=== PATIENT | female | born 1950 | race Caucasian/White ===

== ENCOUNTER → 2017-01-03 | Outpatient (CLI) | payer OTHER ==
[2015-09-05 14:45] VITALS: BP 108/59
[~2017-01-03] MED LIST: ACYC400T PO; CYAN1TAB19 PO; FURO-69 PO; GABA-586 PO; GABA-587 PO; HYDR12.53 PO; HYDR25TA9 PO; LEVO50TA5 PO; MAGN400T22 PO; OXYC1TAB7 PO; QUET25TA PO; TEMA30CA PO; TRAM50TA PO
[2017-01-03 14:40] LABS: BASO # 0.1 x10^3/uL (0.0-0.2); BASO % 1 % (0-3); EOS % 2 % (0-3); HEMATOCRIT 40.6 % (36.0-47.0); HEMOGLOBIN 13.7 g/dL (12.0-15.5); LYMPH # 2.6 x10^3/uL (1.0-4.8); LYMPH % 30 % (24-48); MEAN CORPUSCULAR HEMOGLOBIN 35 pg (25-35); MEAN CORPUSCULAR HGB CONC 34 g/dL (31-37); MEAN CORPUSCULAR VOLUME 104 fL (79-100); MONO % 7 % (0-9); NEUT % 60 % (31-73); PLATELET COUNT 404 x10^3/uL (140-400); RED BLOOD COUNT 3.92 x10^6/uL (3.50-5.40); RED CELL DISTRIBUTION WIDTH 13.2 % (11.5-14.5); WHITE BLOOD COUNT 8.8 x10^3/uL (4.0-11.0)
[2017-01-03 14:49] LABS: ALBUMIN 3.7 g/dL (3.4-5.0); CREATININE 2.1 mg/dL (0.6-1.0); GFR 23.7; POTASSIUM 3.2 mmol/L (3.5-5.1); TOTAL BILIRUBIN 0.4 mg/dL (0.2-1.0)
== END | disposition home or self-care (01) ==
LOC: SURGPAT 13:09
PROVIDERS: ATTEND Surgery
DX: Z01.812 Encounter for preprocedural laboratory examination (principal)
CPT/HCPCS: 36415; 80048; 82040; 82247; 85027

== ENCOUNTER 2017-01-06 07:52 | Observation (INO) | payer OTHER ==
[2017-01-06] VITALS (10 sets, daily range): BP systolic 92–111; BP diastolic 50–78
[~2017-01-06] VITALS: Ht 157.5 cm; Wt 54.0 kg
[~2017-01-06 07:52] MED LIST changes: +BUPIVAC MPF-EPI 0.5%-1:200000 30 ML VIAL. ONE; +IOHEXOL 300 MG/ML 50 ML VIAL. ONE; +IV RINGERS,LACTATED 1000ML 1,000 ML IV SCH; +LIDOCAINE 1% 1 ML SYRINGE. ID PRN; +MORPHINE SULFATE 2 MG/ML DISP.SYRIN. IV PRN; +ONDANSETRON PF 4 MG/2 ML VIAL. IV PRN; +PROCHLORPERAZINE 10 MG/2 ML VIAL. IV PRN; +fentaNYL PF VIAL 100 MCG/2 ML VIAL IV PRN
[2017-01-06] MEDS ORDERED: fentaNYL PF VIAL 250 MCG/5 ML VIAL ONE (10:29)
[2017-01-06] MEDS ORDERED: ROCURONIUM 50 MG/5 ML VIAL. ONE (10:29)
[2017-01-06] MEDS ORDERED: MIDAZOLAM HCL/PF 2 MG/2 ML VIAL. ONE (10:29)
[2017-01-06] MEDS ORDERED: DEXAMETHASONE SOD PHOS 20 MG/5 ML VIAL. ONE (10:30)
[2017-01-06] MEDS ORDERED: PROPOFOL 20 ML IV ONE (10:30)
[2017-01-06] MEDS ORDERED: LIDOCAINE 2% PF Vial for OR 5 ML VIAL. ONE (10:30)
[2017-01-06] MEDS ORDERED: ONDANSETRON PF 4 MG/2 ML VIAL. ONE (10:30)
[2017-01-06] MEDS ORDERED: PHENYLEPHRINE in 0.9% NACL PF 1 MG/10 ML DISP.SYRIN. IV ONE (11:39)
[2017-01-06] MEDS ORDERED: ePHEDrine PF IN SALINE 50 MG/5 ML DISP.SYRIN IV ONE (11:46)
--- NOTE | 2017-01-06 12:24 | RAD ---
EXAM: Intraoperative cholangiogram. HISTORY: Intraoperative cholangiogram. COMPARISON: None. FINDINGS: 3 fluoroscopic images are obtained intraoperatively during injection of the cystic duct remnant after cholecystectomy. There are no filling defects to suggest retained stones. The common duct is not dilated. Fluoroscopy time 23 seconds. Postsurgical changes are seen in the left upper quadrant. IMPRESSION: No evidence of retained stones.
[2017-01-06] MEDS ORDERED: GLYCOPYRROLATE 1 MG/5 ML VIAL. ONE (12:33)
[2017-01-06] MEDS ORDERED: NEOSTIGMINE METHYLSULFATE 5 MG/5 ML SYRINGE. ONE (12:33)
[2017-01-06] MEDS ORDERED: SEVOFLURANE 61 TO 120 MINUTES. IH ONE (12:39)
[2017-01-06] MEDS ORDERED: DESFLURANE 61 TO 120 MINUTES IH ONE (12:39)
--- NOTE | 2017-01-06 12:48 | PDOC ---
BRIEF OPERATIVE NOTE Date: Jan 06, 2017 Pre-Op Diagnosis sx cholelithiasis Post-Op Diagnosis same with abdominal adhesions Procedure Performed l/s cholecystectomy with MICHAEL vaca Surgeon Marshall Anesthesia Type: General Blood Loss 10 IV Fluid 1300cc Urine Output 320cc Specimens Obtained GB Findings supple GB covered by omental adhesions, omental adhesions to abdominal wall 2/2 previous surgeries Complications none Additional Remarks WK # [id number] ULISES DOBBS MD Jan 06, 2017 12:48
[2017-01-06] MEDS: HYDROmorphone 2 MG/ML VIAL IV PRN ×5 (13:09→22:43)
[2017-01-06] MEDS: fentaNYL PF VIAL 100 MCG/2 ML VIAL IV PRN ×2 (13:09→13:31)
[2017-01-06] MEDS ORDERED: oxyCODONE/APAP 5/325 1 TAB TABLET PO PRN (15:15)
[2017-01-06] MEDS ORDERED: 0.9 % SODIUM CHLORIDE 10 ML DISP.SYRIN. IV PRN (15:15)
[2017-01-06] MEDS ORDERED: diphenhydrAMINE 50 MG/ML VIAL IV PRN (15:15)
[2017-01-06] MEDS ORDERED: diphenhydrAMINE HCL 25 MG CAPSULE PO PRN (15:15)
[2017-01-06] MEDS ORDERED: DEXTROSE 50% 25 GM / 50ML DISP.SYRIN. IV PRN (15:15)
[2017-01-06] MEDS: POTASSIUM CL 20MEQ-0.45% NACL 1,000 ML IV SCH (15:29)
--- NOTE | 2017-01-06 16:11 | OP ---
DATE OF SURGERY: 01/06/2017 PREOPERATIVE DIAGNOSIS: Symptomatic cholelithiasis. POSTOPERATIVE DIAGNOSIS: Symptomatic cholelithiasis with abdominal adhesions. PROCEDURE: Laparoscopic cholecystectomy with cholangiogram and lysis of adhesions. SURGEON: Ulises Dobbs MD ANESTHESIA: General endotracheal. ESTIMATED BLOOD LOSS: 10 mL. INTRAVENOUS FLUIDS: 1300 hours. URINE OUTPUT: 300 mL. INDICATIONS: The patient is a 66-year-old with postprandial right upper quadrant pain and known cholelithiasis. She is brought for cholecystectomy. OPERATIVE FINDINGS: The liver was smooth and sharp. The gallbladder was supple and elongated. There were omental adhesions ____ the gallbladder itself. There were some omental adhesions to the abdominal wall in the lower abdomen from previous procedures as well as in the epigastric area. Visual inspection of the remainder of the abdomen failed to reveal obvious abnormalities. DESCRIPTION OF PROCEDURE: The patient brought to the operating suite, given a general endotracheal anesthetic. Flores catheter placement and drainage and the abdomen prepped and draped in usual sterile fashion. A midclavicular line port site was chosen to try to avoid adhesions from previous midline procedures. A 5-mm Visiport was used to gain access into the abdominal cavity, taking care to avoid injury to abdominal contents. Pneumoperitoneum was established. Camera inserted and inspection carried out with results as noted above. With the table in reverse Trendelenburg rolled to left, the lateral port was placed under direct vision. This port was used to take down omental adhesions in the epigastrium with these Harmonic scalpel, taking care to avoid injury to adjacent bowel. This allowed placement of our epigastric port site and also under direct vision, the camera site. Some omental adhesions in the lower abdomen were carefully taken down to prevent future obstruction using the Harmonic scalpel. We then turned our attention to the gallbladder. It was retracted superolaterally. Omental adhesions were carefully taken down with blunt and cautery dissection, avoiding injury to the adjacent bowel. The cystic duct and cystic artery were exposed. The duct was clipped on the gallbladder side. Cholangiograms were made. These were normal. In light of this, the catheter was removed. The cystic duct was clipped x 3 and divided, taking care to avoid injury or compromise the common duct. The cystic artery was clipped x 2 and divided and gallbladder freed from the bed with cautery dissection and placed in an EndoCatch bag. Good hemostasis was present. Table returned to level. Gallbladder delivered through the epigastric incision. Epigastric incision closed with interrupted 0 Vicryl suture. Intra-abdominal pressure decreased to 6 cm of water. No bleeding from the epigastric closure or from the midclavicular or lateral port sites after their removal. Abdomen decompressed, camera slowly removed, and no bleeding seen. Skin incisions closed with subcuticular 4-0 Monocryl. Steri-Strips and sterile dressings were applied. Flores catheter was removed. The patient was awakened from her anesthetic and taken to the recovery room in satisfactory condition. ULISES DOBBS MD DR: KATHY/leona JOB#: [id number] / [id number]
[2017-01-06] MEDS: DOCUSATE SODIUM 100 MG CAPSULE. PO SCH (20:14)
[2017-01-06] MEDS: ACYCLOVIR 200 MG CAPSULE. PO SCH (20:39)
[2017-01-06] MEDS: GABAPENTIN 400 MG CAPSULE. PO SCH (20:39)
[2017-01-06] MEDS: ONDANSETRON PF 4 MG/2 ML VIAL. IV PRN (20:40)
[2017-01-06] MEDS ORDERED: TEMAZEPAM 15 MG CAPSULE PO SCH (21:00)
[2017-01-06] MEDS ORDERED: ENOXAPARIN 30 MG/0.3 ML SYRINGE. SQ SCH (21:00)
[2017-01-06] MEDS: traMADol 50 MG TABLET PO PRN (22:43)
--- NOTE | 2017-01-07 00:11 | ACF ---
Admission Forms Criteria ABDOMINAL PAIN Clinical Indications for Admission to Inpatient Care (Place 'X' for any and all applicable criteria): Admission is indicated for ANY ONE of the following(1)(2)(3)(4)(5): [X ]I. Inpatient admission required rather than observation care (Also use Abdominal Pain: Observation Care, as appropriate) because of ANY ONE of the following: [ ]a) Severe pain requiring acute inpatient management [ X]b) Identification of etiology/finding that requires inpatient care (eg, aortic dissection, free air) [ ]c) Absent bowel sounds with complete ileus(6) [ ]d) Suspected toxic megacolon [ ]e) Severe electrolyte abnormalities requiring inpatient care [ ]f) High fever or infection requiring inpatient admission as indicated by ANY ONE of following(7)(8): [ ] i) Appropriate outpatient or observational care antimicrobial treatment unavailable, not effective, or not feasible [ ] ii) Documented bacteremia [ ] iii) Temperature > 104.9 degrees F (oral) [ ] iv) T >103.1 F (oral) or < 96.8 F(rectal) that does not respond to all emergency treatment measures [ ]g) Signs of intestinal obstruction [B] [ ]h) Hemodynamic instability [ ]i) IV fluid to replace significant ongoing losses (greater than 3 L/m2 per day) (12)(13) [ ]j) Percutaneous or open drainage (eg, abscess, biliary tract ) procedures [ ]k) Parenteral nutrition regimen that must be implemented on inpatient basis [ ]l) Other condition,treatment or monitoring requiring inpatient admission. [ ]II. Peritoneal signs present [ ]III. Surgery needed that cannot be performed on an ambulatory basis. [ ]IV. Evaluation requires patient to not eat or drink for extended period ( eg, more than 24 hours). [ ]V. Contraindications and/or Inappropriate clinical situations for Observational Care in patients with abdominal pain, when ANY ONE of the following is required: [ ]a) Thorough evaluation is required to prevent catastrophic events due to delays in diagnosing (e.g.Mesenteric ischemia) 1,3 [ ]b) Patient with severe pathology or with chronic symptoms unlikely to improve in the ED stay (3) [ ]. General contraindications and/or Inappropriate clinical situations for Observational Care in patients with abdominal pain, when ANY ONE of the following is required: [ ]a) Prediction of prolongation of LOS based on ANY ONE of the following may be considered as a contraindication for observational care 2, 3, 4, 5, 6, 7, 8, 9, 10, 11 [ ]i) Age > 65 yrs. [ ]ii) Patient arriving by ambulance [ ]iii) Patient with high acuity [ ]iv) Patient requiring vital sign monitoring [ ]v) Patient on IV medication [ ]b) Systolic blood pressures 180mmHg 3,12 [ ]c) Patient with altered mental status including delirium and other alteration of consciousness, (3) [ ]d) Patient whose discharge disposition will be to a [place] [facility] home or rehabilitation home should not be managed in Emergency Department Observation Unit. CMS rule requires 3 days hospital stay before such placement.3,13 [ ]e) Patient with failure to thrive due to broad array of etiologies 3,16,17 [ ]f) Inability to ambulate 3,14 Extended stay beyond goal length of stay may be needed for(2)(3): [ ]a) Persistent abdominal pain with suspected intra-abdominal process [ ]b) Diagnosed condition requiring continued stay (e.g., pancreatitis, complicated diverticulitis) [ ]c) Surgery (e.g., colectomy) The original [facility] content created by [employer] has been revised. The portions of the content which have been revised are identified through the use of italic text or in bold, and [facility] has neither reviewed nor approved the modified material.All other unmodified content is copyright [facility]. Please see references footnoted in the original [facility] edition 2016 Admission Criteria Met?: Yes JIE HEATH Jan 07, 2017 00:11
[2017-01-07 03:08] VITALS: BP 86/47
[2017-01-07 03:10] VITALS: BP 91/45
[2017-01-07] MEDS: ONDANSETRON PF 4 MG/2 ML VIAL. IV PRN (03:15)
[2017-01-07] MEDS: HYDROmorphone 2 MG/ML VIAL IV PRN (03:16)
[2017-01-07] MEDS: POTASSIUM CL 20MEQ-0.45% NACL 1,000 ML IV SCH ×2 (04:01→15:16)
[2017-01-07] MEDS: traMADol 50 MG TABLET PO PRN ×3 (05:17→17:35)
[2017-01-07 06:21] VITALS: BP 96/58
[2017-01-07] MEDS ORDERED: LEVOTHYROXINE 50 MCG TABLET PO SCH (07:00)
[2017-01-07 07:35] VITALS: BP 90/55
[2017-01-07] MEDS ORDERED: hydroCHLOROthiazide 25 MG TABLET PO SCH (09:00)
[2017-01-07] MEDS: DOCUSATE SODIUM 100 MG CAPSULE. PO SCH (09:00)
[2017-01-07] MEDS: GABAPENTIN 400 MG CAPSULE. PO SCH ×2 (09:30→15:14)
[2017-01-07] MEDS: ACYCLOVIR 200 MG CAPSULE. PO SCH ×2 (09:30→15:14)
--- NOTE | 2017-01-07 10:33 | DISCH ---
DISCHARGE INSTRUCTIONS Condition on Discharge Condition on Discharge: Stable Activity After Discharge Activity Instructions for Disc: Resume previous activity, Activity as tolerated , Avoid exertion Lifting Instructions after Dis: No heavy lifting Diet after Discharge Diet after Discharge: Regular Wound Incision Care Wound/Incision Care: Ice to area for comfort Other wound/incision instructi: ambrosio sommers Follow-Up Follow Up With: Marshall 01/16 ULISES DOBBS MD Jan 07, 2017 10:33
--- NOTE | 2017-01-07 10:37 | PDOC3 ---
Discharge Summary* Date of Admission: Jan 06, 2017 Date of Discharge: Jan 07, 2017 Admitting Diagnosis symptomatic cholelithiasis Final Diagnosis same with abdominal adhesions Procedures l/s yesenia with MICHAEL vaca Brief Hospital Course Ms. Ch is a 66 old female who presented with post prandial RUQ pain. US showed stones and she was brought for l/s yesenia. She did well post op. Disposition/Orders: D/C to Home CONDITION AT DISCHARGE: Improved, Stable Diet: Regular Scheduled Acyclovir (Acyclovir), 1 TAB PO TID, (Reported) Gabapentin (Gabapentin), 400 MG PO TID, (Reported) Hydrochlorothiazide (Hydrochlorothiazide Capsule ), 50 MG PO DAILY, (Reported ) Levothyroxine Sodium (Levothyroxine Sodium), 50 MCG PO DAILY07 Temazepam (Temazepam), 1 CAP PO QHS, (Reported) Tramadol Hcl (Tramadol Hcl), 1 TAB PO PRN Q6HRS, (Reported) FOLLOW UP APPOINTMENT: [facility] 01/16 Time Spent Total time spent with patient 10 minutes for coordination of care, counseling, and education. ULISES DOBBS MD Jan 07, 2017 10:37
[2017-01-07 10:40] VITALS: BP 97/59
--- NOTE | 2017-01-07 11:56 | PDOC ---
Provider Note Provider Note pt complains of "crushing" chest pain like "someone's standing on my chest" VSS O2 sat on RA is 97% doubt cardiac event, but will ask cardiology to see rather than send home now ULISES DOBBS MD Jan 07, 2017 11:56
--- NOTE | 2017-01-07 12:15 | PDOC2 ---
GANESH CUNNINGHAM SAFETY GROOVING MACHINE OPERATOR 01/07/17 1215: CARDIAC CONSULT DATE OF CONSULT Date of Consult DATE: 01/07/17 TIME: 12:04 REASON FOR CONSULT Reason for Consult: Chest pain REFERRING PHYSICIAN Referring Physician: Marshall SOURCE Source: Chart review, Patient HISTORY OF PRESENT ILLNESS HISTORY OF PRESENT ILLNESS This is a pleasant 66 yo female admitted for elective lap yesenia. Consult is for chest pain. Reports that she has had heartburn before but no pressure sensation. Verbalized having this chest pressure like somebody was stepping of her mid chest and associated with feeling hot and lasted about 1 minute prior to her surgery. This happened again last night while she was in the bathroom with some nausea and again lasted about a minute. This did not radiate to jaw or arm and was not associated with palpitations, SOA, dizziness and no diaphoresis. Denies any CAD, VTE in the past. She does not have HTN but takes HCTZ for chronic leg edema. Currently she denies any symptoms and her surgical pain is controlled. 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) Psych: Anxiety Musculoskeletal: Osteoarthritis Rheumatologic: No pertinent hx Infectious disease: Herpes simplex2 (genital) ENT: No pertinent hx Renal/: Chronic renal insuff Endocrine: Hypothyroidism, Osteoporosis, Other (thyroid nodule) Dermatology: No pertinent hx PAST SURGICAL HISTORY Past Surgical History: Appendectomy, Cholecystectomy, Tonsillectomy, Hysterectomy, Other (gastrectomy; splencetomy; knee surgery; bladder surgery) FAMILY HISTORY Family History: Diabetes SOCIAL HISTORY Smoke: No ALCOHOL: none Drugs: None Lives: with Family CURRENT MEDICATIONS CURRENT MEDICATIONS Current Medications Medications (Trade) Dose Ordered Sig/Kota Route PRN Reason Start Time Stop Time Status Last Admin Dose Admin Enoxaparin Sodium (Lovenox 30mg Syringe) 30 mg Q24H SQ 01/06/17 21:00 01/06/17 20:40 Potassium Chloride/Sodium Chloride 1,000 ml @ 80 mls/hr [id number] IV 01/06/17 16:00 01/07/17 04:01 Hydromorphone HCl (Dilaudid) 0.5 mg PRN Q2HR PRN IV PAIN 01/06/17 15:15 01/07/17 03:16 Ondansetron HCl (Zofran) 4 mg PRN Q6HRS PRN IV NAUESA, 1ST CHOICE 01/06/17 15:15 01/07/17 03:15 Levothyroxine Sodium (Synthroid) 50 mcg DAILY07 PO 01/07/17 07:00 01/07/17 06:24 Temazepam (Restoril) 30 mg QHS PO 01/06/17 21:00 01/06/17 20:38 Tramadol HCl (Ultram) 50 mg PRN Q6HRS PRN PO MILD PAIN 01/06/17 15:15 01/07/17 11:35 Acyclovir (Zovirax) 400 mg [id number] PO 01/06/17 21:00 01/07/17 09:30 Gabapentin (Neurontin) 400 mg TID PO 01/06/17 21:00 01/07/17 09:30 ALLERGIES ALLERGIES: Coded Allergies: aspirin (Verified Allergy, Severe, Anaphylaxis, 01/03/17) tomato (Verified Allergy, Severe, Anaphylaxis, 01/03/17) Penicillins (Verified Allergy, Intermediate, Anaphylaxis, 01/03/17) pecan nut (Verified Allergy, Intermediate, Anaphylaxis, 01/03/17) raspberry (Verified Allergy, Intermediate, 08/30/15) walnut (Verified Allergy, Intermediate, 08/30/15) wheat (Verified Allergy, Intermediate, 08/30/15) ROS Review of System 14 point ROS evaluated with pertinent positives noted per HPI PHYSICAL EXAM General: Alert, Oriented X3, Cooperative, No acute distress HEENT: Atraumatic, Mucous membr. moist/pink Lungs: Clear to auscultation, Normal air movement Heart: Regular rate (SR), Normal S1, Normal S2, No murmurs Abdomen: Soft, Other (slight abdominal tenderness) Extremities: No cyanosis, Other (trace LE edema) Skin: No breakdown, No significant lesion, Other (surgical lap yesenia sites intact with bandaids) Neuro: Normal speech, Sensation intact Psych/Mental Status: Mental status NL, Mood NL MUSCULOSKELETAL: Full range of motion without pain, Osteoarthritic changes both hands, Other (head tremor) VITALS VITALS Vital Signs Date Time Temp Pulse Resp B/P (MAP) Pulse Ox O2 Delivery O2 Flow Rate FiO2 01/07/17 11:35 97 Nasal Cannula 01/07/17 10:40 97.9 76 18 97/59 (72) 97.9 01/07/17 07:35 3.0 ECHOCARDIOGRAM ECHOCARDIOGRAM <Conclusion> Normal LV systolic function and wall motion. EF 65% No significant valvular abnormalities, diastolic dysfunction or pulmonary hypertension. DATE: 08/31/15 1854 ASSESSMENT/PLAN ASSESSMENT/PLAN 1. Atypical CP: EKG SR without acute changes. Doubt ACS, likely anxiety with GERD component. 2. S/P lap yesenia: POD#1. tolerated procedure well indicating good cardiac tolerance. 3. Hypokalemia: likely from HCTZ Recommendations 1. Cardiac w/u. Obtain TTE, troponin x2, EKG, BMP, Mg. 2. Consider PPI 3. Continue post op protocol per general surgery 4. Possible DC late this evening. Problems: HARINI MESSER MD 01/08/17 1139: CARDIAC CONSULT ALLERGIES ALLERGIES: Coded Allergies: aspirin (Verified Allergy, Severe, Anaphylaxis, 01/03/17) tomato (Verified Allergy, Severe, Anaphylaxis, 01/03/17) Penicillins (Verified Allergy, Intermediate, Anaphylaxis, 01/03/17) pecan nut (Verified Allergy, Intermediate, Anaphylaxis, 01/03/17) raspberry (Verified Allergy, Intermediate, 08/30/15) walnut (Verified Allergy, Intermediate, 08/30/15) wheat (Verified Allergy, Intermediate, 08/30/15) ASSESSMENT/PLAN ASSESSMENT/PLAN Patient seen and examined 01/07/17. Agree with WALLET ASSEMBLER's assessment and plan. Chest pain with atypical features. 2-D echo showed normal LV systolic function without any wall motion abnormalities. Continue postop care per surgical team. No further cardiac workup is indicated at this time. Thank you for your consultation. Problems: GANESH CUNNINGHAM APRN Jan 07, 2017 12:15 HARINI MESSER MD Jan 08, 2017 11:39
--- NOTE | 2017-01-07 12:17 | EKG ---
[facility] [address] [place] [address] Test Date: 2017-01-07 Test Time: 12:06:55 Pat Name: DAPHNIE BACA Department: Room: [facility] Gender: F Fourdrinier Wire Weaver: ARTURO : 1950 Requested By: ULISES DOBBS Order Number: [id number] Reading MD: Gilberto Miller Measurements Intervals [place] Rate: 79 P: 63 LA: 168 QRS: 36 QRSD: 72 T: 32 QT: 366 QTc: 426 Interpretive Statements SINUS RHYTHM Electronically Signed On 01-07-2017 16:58:11 CDT by Gilberto Miller
[2017-01-07 12:55] LABS: CALCIUM 8.8 mg/dL (8.5-10.1); CREATININE 1.2 mg/dL (0.6-1.0); GFR 45.2; MAGNESIUM 1.8 mg/dL (1.8-2.4); POTASSIUM 3.3 mmol/L (3.5-5.1)
[2017-01-07] MEDS ORDERED: POTASSIUM CHLORIDE 20 MEQ TABLET.ER. PO ONE (13:00)
--- NOTE | 2017-01-07 13:01 | RAD ---
AP portable chest radiograph 01/07/2017 Clinical History: Chest pain and tightness. An AP portable erect digital radiograph of the chest was obtained. Comparison study is dated 09/02/2015. Surgical clips overlie the left upper quadrant of the abdomen and right upper quadrant of the abdomen. The left subclavian Khfmol-h-Gnhp type catheter is unchanged in position. The cardiac silhouette is normal in size. The thoracic aorta is tortuous. Atherosclerotic calcification of the thoracic aorta is seen. Linear bands of subsegmental atelectasis are seen involving both lower lobes, left greater than right. No area of consolidation is seen. No pleural effusion or pneumothorax is noted. There is diffuse osteopenia of the visualized bony structures. Degenerative changes are seen involving the thoracic spine and both shoulders. Impression: Linear bands of subsegmental atelectasis are seen involving both lower lobes, left greater than right.
[2017-01-07 15:00] VITALS: BP 124/60
--- NOTE | 2017-01-07 17:34 | CARD ---
APPROVED REPORT EXAM: Two-dimensional and M-mode echocardiogram with Doppler and color Doppler. Other Information Quality : Technically Limited Technically limited study due to lung/breathing interference INDICATION Chest Pain 2D DIMENSIONS RVDd2.1 (2.9-3.5cm)Left Atrium(2D)2.4 (1.6-4.0cm) IVSd0.7 (0.7-1.1cm)Aortic Root(2D)1.8 (2.0-3.7cm) LVDd2.5 (3.9-5.9cm)PWd0.7 (0.7-1.1cm) LVDs1.1 (2.5-4.0cm)FS (%) 30.0 % SV20.3 mlLVEF(%)60.0 (>50%) Aortic Valve AoV Peak Keven.155.8cm/sAoV VTI30.2cm AO Peak GR.9.7mmHgLVOT Peak Keven.159.4cm/s LVOT VTI 31.79cmAO Mean GR.6mmHg Mitral Valve MV E Ezvrtwwj414.4cm/sMV DECEL HRKG184gs MV A Suxtikeb15.0cm/sMV SUD62pt E/A Ratio1.5MVA (PHT)4.99cm2 TDI E/Lateral E'11.1E/Medial E'15.1 Tricuspid Valve TR P. Zeebymew584wg/sRAP BYCBRBYF4kaKt TR Peak Gr.69dxZuLHNH73eiCi Pulmonary Vein S1 Nibrqoxp58.1cm/sD2 Uqynzkkd01.8cm/s PVa [id number] LEFT VENTRICLE The left ventricle is normal size. There is normal left ventricular wall thickness. The left ventricu lar systolic function is normal and the ejection fraction is within normal range. The Ejection Fracti on is 55-60%. There is normal LV segmental wall motion. Transmitral Doppler flow pattern is Grade I-a bnormal relaxation pattern. RIGHT VENTRICLE The right ventricle is normal size. The right ventricular systolic function is normal. ATRIA The left atrium size is normal. The right atrium size is normal. The interatrial septum is intact wit h no evidence for an atrial septal defect or patent foramen ovale as noted on 2-D or Doppler imaging. AORTIC VALVE The aortic valve is normal in structure and function. Doppler and Color Flow revealed no significant aortic regurgitation. There is no significant aortic valvular stenosis. MITRAL VALVE The mitral valve is normal in structure and function. There is no evidence of mitral valve prolapse. There is no mitral valve stenosis. Doppler and Color-flow revealed trace mitral regurgitation. TRICUSPID VALVE The tricuspid valve is normal in structure and function. Doppler and Color Flow revealed mild tricusp id regurgitation. The PA pressure was estimated at 37 mmHg. There is no tricuspid valve stenosis. PULMONIC VALVE Doppler and Color Flow revealed no pulmonic valvular regurgitation. There is no pulmonic valvular brook nosis. GREAT VESSELS The aortic root is normal in size. The ascending aorta is not well seen. The IVC is normal in size an d collapses >50% with inspiration. PERICARDIAL EFFUSION There is no evidence of significant pericardial effusion. Critical Notification Critical Value: No <Conclusion> The left ventricular systolic function is normal and the ejection fraction is within normal range. Th e Ejection Fraction is 55-60%. There is normal LV segmental wall motion. Doppler and Color Flow revealed mild tricuspid regurgitation. The PA pressure was estimated at 37 mm Hg.
--- NOTE | 2017-01-08 11:39 | PATHOLOGY ---
PATHOLOGY REPORT * * * * * * * * FINAL DIAGNOSIS: Gallbladder, laparoscopic cholecystectomy: - Cholelithiasis. - Chronic and focal acute cholecystitis with focally increased eosinophils. COMMENT: There is no evidence of malignancy. (JPM:mgr; d/t: 01/08/17) REPORT ELECTRONICALLY SIGNED BY: Beltran Rivera M.D. DATE/TIME: 01/08/2017 11:38 * * * * * * * * GROSS PATHOLOGY: Received in formalin labeled "John Baca, gallbladder and contents," is a 10.2 x 3.9 x 2.9 cm, intact gallbladder with reddish purple serosal surfaces. Opening the gallbladder reveals yellow red, velvety mucosa and an average wall thickness of 0.3 cm. Calculi are present and no masses are noted grossly. Mud Jack Operator sections from the body and fundus are submitted along with the proximal margin in cassette A1. (JPM; 01/06/17) INITIAL CPT CODE(S): A; 31495 Professional services performed [place] [facility] [address] Technical services performed by [facility] at [address] [place] [address]. SPECIMEN(S) RECEIVED: A.Gallbladder and its contents CLINICAL HISTORY: Gallstones PATIENT: JOHN BACA /AGE: 12 1950 (Age: 66) PATIENT #: [id number] ALT CASE #: SPECIMEN COLLECTION DATE: 01/06/2017 SPECIMEN RECEIVED DATE: 01/06/2017 [facility] [place] [address] - PHONE: [phone] * * * END OF REPORT * * *
== END 2017-01-07 18:45 | disposition home or self-care (01) ==
LOC: SURG 07:52 → 4 NORTH 13:11
PROVIDERS: ADMIT Surgery; ATTEND Surgery
DX: K80.20 Calculus of gallbladder without cholecystitis without obstruction (principal); K66.0 Peritoneal adhesions (postprocedural) (postinfection); R07.89 Other chest pain; R60.0 Localized edema; E87.6 Hypokalemia; G62.9 Polyneuropathy, unspecified; K21.9 Gastro-esophageal reflux disease without esophagitis; F41.9 Anxiety disorder, unspecified; M19.90 Unspecified osteoarthritis, unspecified site; N18.9 Chronic kidney disease, unspecified; E03.9 Hypothyroidism, unspecified; M81.0 Age-related osteoporosis without current pathological fracture; Z86.19 Personal history of other infectious and parasitic diseases; Z85.028 Personal history of other malignant neoplasm of stomach; Z85.42 Personal history of malignant neoplasm of other parts of uterus; Z90.89 Acquired absence of other organs; Z90.49 Acquired absence of other specified parts of digestive tract; Z90.710 Acquired absence of both cervix and uterus; Z83.3 Family history of diabetes mellitus
CPT/HCPCS: 36415; 47563; 71010; 74300; 80048; 83735; 84132; 84484; 93005; 93306; 96372; 96374; 96375; 96376; C1769; C1782; G0378; G0379; J0780; J1100; J1170; J1650; J1956; J2250; J2370; J2405; J2704; J2710; J3010; J3490; J7030; J7120; Q9967; 88304

== ENCOUNTER → 2018-06-09 | Outpatient (CLI) | payer OTHER ==
[~2018-06-09] MED LIST changes: -BUPIVAC MPF-EPI 0.5%-1:200000 30 ML VIAL. ONE; -IOHEXOL 300 MG/ML 50 ML VIAL. ONE; -IV RINGERS,LACTATED 1000ML 1,000 ML IV SCH; -LIDOCAINE 1% 1 ML SYRINGE. ID PRN; -MORPHINE SULFATE 2 MG/ML DISP.SYRIN. IV PRN; -ONDANSETRON PF 4 MG/2 ML VIAL. IV PRN; -PROCHLORPERAZINE 10 MG/2 ML VIAL. IV PRN; -fentaNYL PF VIAL 100 MCG/2 ML VIAL IV PRN
--- NOTE | 2018-06-09 14:03 | RAD ---
PQRS Compliance statement: One or more of the following individualized dose reduction techniques were utilized for this examination: 1. Automated exposure control. 2. Adjustment of the mA and/or kV according to patient size. 3. Use of iterative reconstruction technique. INDICATION: Left tibial plateau fracture, left knee pain and decreased weightbearing TECHNIQUE: CT of the left knee without IV contrast with reformats COMPARISON: 06/05/2018 FINDINGS: Comminuted mildly depressed bilateral tibial plateau fracture is seen. No fracture of the fibular head or femur seen. There is significant osteopenia. Facet and is clean. Small amount of joint effusion is seen. The patella is well situated in the trochlear groove. Chondrocalcinosis is seen in the bilateral joint compartments. Popliteal and infrapopliteal arterial peripheral vascular disease. IMPRESSION: 1. Comminuted impacted tibial plateau fracture. Electronically signed by: Delio Mata DO (06/09/2018 1:59 PM) [id number]
== END | disposition home or self-care (01) ==
LOC: CT 08:56
PROVIDERS: ATTEND Orthopaedic Surgery Sports Medicine
DX: S82.142A Displaced bicondylar fracture of left tibia, initial encounter for closed fracture (principal); M11.262 Other chondrocalcinosis, left knee; M11.261 Other chondrocalcinosis, right knee; I73.89 Other specified peripheral vascular diseases; M25.462 Effusion, left knee; M85.862 Other specified disorders of bone density and structure, left lower leg; X58.XXXA Exposure to other specified factors, initial encounter; Y93.89 Activity, other specified; Y92.89 Other specified places as the place of occurrence of the external cause; Y99.8 Other external cause status
CPT/HCPCS: 73700